=== PATIENT | male | born 1980 | race Caucasian/White ===

== ENCOUNTER 2018-11-06 04:51 | Inpatient (IN) ==
--- NOTE | 2018-11-06 06:36 | Emergency Department Note ---
Disposition Clinical Impression: Manic behavior Schizophrenia Qualifiers: Schizophrenia type: unspecified Qualified Code(s): F20.9 - Schizophrenia, unspecified Bipolar disorder Qualifiers: Active/Remission status: remission status unspecified Qualified Code(s): F31.9 - Bipolar disorder, unspecified Disposition: Admitted As Inpatient Condition: Good General Adult HPI - General Stated complaint: foot pain Time Seen by Provider: 11/06/18 06:18 Source: patient Limitations: no limitations Nursing Notes Reviewed: Yes Vital Signs Reviewed: Yes - History of Present Illness HPI Narrative: 37-year-old male presents with inappropriate behavior. Patient was sent by ambulance from [facility]. Patient took off all his clothes in bathroom. Patient stated yesterday he does not leave hospital, all this will be exposed to TV. Patient's verbal and behavior became aggressive. Patient admitted he has a history of schizophrenia. Not on any medications. Patient stated he has voice hallucinations sometimes. Denied hallucination at this time. Denied suicidal or homicidal at this time. - Related Data Home Medications Medication Instructions Recorded Confirmed No Known Home Drugs 06/09/18 11/06/18 Allergies Allergy/AdvReac Type Severity Reaction Status Date / Time codeine Allergy Hives Verified 11/06/18 07:37 Penicillins Allergy Swelling Verified 11/06/18 07:37 of Lip/Tongue/Throat Constitutional: Denies: fever, chills Eyes: Denies: eye pain ENT ED: Denies: ear pain Cardiovascular: Denies: chest pain Respiratory: Denies: cough Gastrointestinal: Denies: abdominal pain Genitourinary: Denies: urgency Musculoskeletal: Denies: back pain Integumentary: Denies: rash Neurological: Denies: headache Psychiatric: Reports: auditory hallucinations. Denies: anxiety, suicidal thoughts Endocrine: Denies: fatigue Hematological/Lymphatic: Denies: easy bleeding Allergic/Immunologic: Denies: facial swelling Past Medical History - Past Medical History Medical history: Reports: no medical history Psychiatric history: Reports: no psych history - Social History Smoking Status: Current every day smoker Smokeless Tobacco Status: No Alcohol use: Reports: none Drug use: Reports: marijuana Physical Exam - General Limitations: no limitations General appearance: alert - Head Head exam: atraumatic - Eye Eye exam: Present: normal appearance - ENT ENT exam: normal exam - Neck Neck exam: Present: normal inspection - Chest Chest inspection: Present: normal inspection - Respiratory Respiratory exam: Present: normal lung sounds bilaterally - Cardiovascular Cardiovascular exam: Present: regular rate - Abdominal Exam Abdominal exam: Present: soft, Non-Tender - Extremities Exam Extremities exam: Present: normal inspection, full ROM. Absent: tenderness - Back Exam Back exam: Present: normal inspection - Neurological Exam Neurological exam: Present: alert, oriented X3, normal gait - Psychiatric Psychiatric exam: Present: normal affect, agitated, other (Pt is half naked in room with towel covered waist down, pt denied hallucination on this time, no suicidal or homicidal thought, denied foot pain) - Skin Skin exam: Present: warm, intact Course Vital Signs Temperature 98.1 F 11/06/18 07:41 Pulse Rate 72 11/06/18 07:41 Respiratory Rate 18 11/06/18 07:41 Blood Pressure 128/84 11/06/18 07:41 O2 Sat by Pulse Oximetry 98 11/06/18 07:41 Temperature 98.1 F 11/06/18 07:41 Pulse Rate 72 11/06/18 07:41 Respiratory Rate 18 11/06/18 07:41 Blood Pressure 128/84 11/06/18 07:41 O2 Sat by Pulse Oximetry 98 11/06/18 07:41 Oxygen Delivery Oxygen Delivery Room Air Medical Decision Making - MDM Narrative Medical decision making narrative: 37-year-old male with history of schizophrenia and bipolar presents with in appropriate behavior. Pt was sent to ER by ambulance for foot pain. But pt took off his cloth in bathroom. Pt walked around in waiting room naked. Pt became aggressive when safeguard talked to him. Pt admitted auditory hallucination sometimes. Denied hallucination or suicidal thought at this time. Labs are unremarkable, negative drug screen. 1A evaluated, and considered pt doesn't meet the criteria of admission. Patient is suggested to have a head CT. Patient refused it. Patient is referred to mental health clinic. Patient will be discharged home. 10:30 am. Pt started having aggressive language and behavior during discharging. Pt stated he felt something is wrong here. Pt refused to leave with wet cloth and without sitting on wheelchair. Pt yelled in hallway madly. Concerning of homicidal behavior at this time. . Will call 1A again. 11:30 am 1A evaluated, will admit patient to for observation. Dr. Fierro has seen the patient and agrees the above plan. - Lab Data Lab results reviewed: Yes I reviewed the patient's lab results. Result diagrams: 11/06/18 06:45 11/06/18 06:45 Lab Results 11/06/18 11/06/18 11/06/18 Range/Units 06:45 06:45 07:02 WBC 10.2 (4.3-11.1) K/mcL RBC 4.97 (4.19-5.50) M/mcL Hgb 15.1 (12.9-16.9) g/dL Hct 45.5 (37.5-50.1) % MCV 91.5 (83.0-100.0) fL MCH 30.4 (28.0-33.3) pg MCHC 33.2 (31.6-35.5) g/dL RDW 13.9 (11.5-14.5) % Plt Count 245 (140-400) K/mcL MPV 9.3 L (9.4-12.4) fL Immature Gran % 0.5 (0-4) % Seg Neutrophils % 74.1 % Lymphocytes % 14.9 % Monocytes % 8.6 % Eosinophils % 1.5 % Basophils % 0.4 % Neutrophils # 7.5 (1.6-8.9) K/mcL Lymphocytes # 1.5 (0.6-4.6) K/mcL Monocytes # 0.9 (0.0-1.3) K/mcL Eosinophils # 0.2 (0.0-0.6) K/mcL Basophils # 0.0 (0.0-0.2) K/mcL Sodium 135 L (136-145) mEq/L Potassium 4.1 (3.5-5.1) mEq/L Chloride 103 (98-107) mEq/L Carbon Dioxide 23 (23-29) mEq/L BUN 10 (6-20) mg/dL Creatinine 0.60 L (0.70-1.30) mg/dL Est GFR ( Amer) > 60 (> 60) Est GFR (Non-Af Amer) > 60 (> 60) BUN/Creatinine Ratio 17 (6-26) Glucose 113 H (70-105) mg/dL Calculated Osmolality 280 (280-300) Calcium 9.2 (8.6-10.3) mg/dL Total Bilirubin 1.1 H (0.3-1.0) mg/dL Direct Bilirubin 0.1 (0.0-0.2) mg/dL Indirect Bilirubin 1.0 (0.0-1.2) mg/dL AST 18 (13-39) Units/L ALT 17 (7-52) Units/L Alkaline Phosphatase 90 (34-104) Units/L Serum Total Protein 6.9 (6.4-8.9) g/dL Albumin 4.2 (3.5-5.7) g/dL Globulin 2.7 (2.4-3.5) g/dL Albumin/Globulin Ratio 1.6 (1.1-2.2) Urine Color Yellow (Yellow) Urine Clarity Clear (Clear) Urine pH 5.5 (5.0-8.0) pH Units Ur Specific [place] 1.020 (1.010-1.025) Urine Protein Negative (Neg-Trace) mg/dL Urine Glucose (UA) Normal (Normal) mg/dL Urine Ketones Negative (Negative) mg/dL Urine Blood Negative (Negative) Urine Nitrite Negative (Negative) Urine Bilirubin Negative (Negative) Urine Urobilinogen Normal (Normal) mg/dL Ur Leukocyte Esterase Negative (Negative) Salicylates < 2.5 L (15.0-30.0) mg/dL Urine Opiates Screen (Tgpiyi=476) ng/mL Acetaminophen < 10 L (10-20) mcg/mL Ur Barbiturates Screen (Hezhof=110) ng/mL Ur Phencyclidine Scrn (Cutoff=25) ng/mL Ur Amphetamines Screen (Cktcdy=6600) ng/mL U Benzodiazepines Scrn (Qgtrmb=402) ng/mL Urine Cocaine Screen (Cutoff= 300) ng/mL U Marijuana (THC) Screen (Cutoff = 50) ng/mL Ur Drug Screen Interp Ethyl Alcohol < 10 (Less than 10) mg/dL 11/06/18 Range/Units 07:02 WBC (4.3-11.1) K/mcL RBC (4.19-5.50) M/mcL Hgb (12.9-16.9) g/dL Hct (37.5-50.1) % MCV (83.0-100.0) fL MCH (28.0-33.3) pg MCHC (31.6-35.5) g/dL RDW (11.5-14.5) % Plt Count (140-400) K/mcL MPV (9.4-12.4) fL Immature Gran % (0-4) % Seg Neutrophils % % Lymphocytes % % Monocytes % % Eosinophils % % Basophils % % Neutrophils # (1.6-8.9) K/mcL Lymphocytes # (0.6-4.6) K/mcL Monocytes # (0.0-1.3) K/mcL Eosinophils # (0.0-0.6) K/mcL Basophils # (0.0-0.2) K/mcL Sodium (136-145) mEq/L Potassium (3.5-5.1) mEq/L Chloride (98-107) mEq/L Carbon Dioxide (23-29) mEq/L BUN (6-20) mg/dL Creatinine (0.70-1.30) mg/dL Est GFR ( Amer) (> 60) Est GFR (Non-Af Amer) (> 60) BUN/Creatinine Ratio (6-26) Glucose (70-105) mg/dL Calculated Osmolality (280-300) Calcium (8.6-10.3) mg/dL Total Bilirubin (0.3-1.0) mg/dL Direct Bilirubin (0.0-0.2) mg/dL Indirect Bilirubin (0.0-1.2) mg/dL AST (13-39) Units/L ALT (7-52) Units/L Alkaline Phosphatase (34-104) Units/L Serum Total Protein (6.4-8.9) g/dL Albumin (3.5-5.7) g/dL Globulin (2.4-3.5) g/dL Albumin/Globulin Ratio (1.1-2.2) Urine Color (Yellow) Urine Clarity (Clear) Urine pH (5.0-8.0) pH Units Ur Specific [place] (1.010-1.025) Urine Protein (Neg-Trace) mg/dL Urine Glucose (UA) (Normal) mg/dL Urine Ketones (Negative) mg/dL Urine Blood (Negative) Urine Nitrite (Negative) Urine Bilirubin (Negative) Urine Urobilinogen (Normal) mg/dL Ur Leukocyte Esterase (Negative) Salicylates (15.0-30.0) mg/dL Urine Opiates Screen Negative (Stsoza=631) ng/mL Acetaminophen (10-20) mcg/mL Ur Barbiturates Screen Negative (Njjqzg=104) ng/mL Ur Phencyclidine Scrn Negative (Cutoff=25) ng/mL Ur Amphetamines Screen Negative (Dtaeqa=0229) ng/mL U Benzodiazepines Scrn Negative (Xojtoe=435) ng/mL Urine Cocaine Screen Negative (Cutoff= 300) ng/mL U Marijuana (THC) Screen Negative (Cutoff = 50) ng/mL Ur Drug Screen Interp See Below Ethyl Alcohol (Less than 10) mg/dL Attestation Statement - Attestation Attestation: I, Ryan Mims DO have provided [id number] time during the care of this patient. Detailed review the presentation, symptoms, medical history were discussed and reviewed with the advanced practice provider Rudi Meneses PA-C/[employer]. Medical intervention labs and imaging studies were reviewed in detail. See full documentation of physical exam and course of care in the advanced practice provider's note. I agree with the determined course of care, medical intervention and disposition put forth by the advanced practice provider. See below documentation for changes or alterations in documentation. Ysabel Spencer M.D. also had [id number] time with this patient. Initial consultation by one a was at the patient was okay to go home. However prior to him leaving he threatened to jump in front of a car. He got hostile and somewhat disgruntled with the staff. I we had one a reevaluate him and they agreed to accept him to the psychiatric banks. Hemodynamically he remained stable and medically cleared for admission.
--- NOTE | 2018-11-06 06:39 | Emergency Department Note ---
Disposition Clinical Impression: Manic behavior Disposition: Still a Patient Condition: Fair Referrals: NONE,PCP [Primary Care Provider] - Time of Disposition: 06:39 General Adult HPI - General Stated complaint: foot pain Time Seen by Provider: 11/06/18 06:18 - Related Data Home Medications Medication Instructions Recorded Confirmed No Known Home Drugs 06/09/18 06/09/18 Allergies Allergy/AdvReac Type Severity Reaction Status Date / Time codeine Allergy Hives Verified 07/21/18 19:12 Past Medical History - Past Medical History Medical history: Reports: no medical history Psychiatric history: Reports: no psych history - Social History Smoking Status: Current every day smoker Smokeless Tobacco Status: No Alcohol use: Reports: none Drug use: Reports: marijuana Attestation Statement - Attestation Attestation: I, Ryan Mims DO have provided [id number] time during the care of this patient. Detailed review the presentation, symptoms, medical history were discussed and reviewed with the advanced practice provider Rudi Meneses PA-C/[employer]. Medical intervention labs and imaging studies were reviewed in detail. See full documentation of physical exam and course of care in the advanced practice provider's note. I agree with the determined course of care, medical intervention and disposition put forth by the advanced practice provider. See below documentation for changes or alterations in documentation. 37-year-old male presents emergency room with foot pain. Patient was waiting in the triage area for evaluation when he decided to remove all his clothing and try to walk outside. He is actively in a manic episode. The emergency room. Patient denies any fevers or chills. No nausea vomiting or diarrhea. Denies any chest pain or shortness of breath. Denies any falls trauma or injury. He has not been taking all of his medications at this time. Patient is describing people actively trying to come after him and clearly manic and delusional presen tation at this point. Medical clearance will be established. Patient does not require any chemical or physical restraint at this time. He is conversational and easily distractible. Headhave an abrasion above the right anterior aspect of the orbit from when the officers try to bring her back and in the hospital while he was naked. Heart is regular lungs are clear. Neurologic evaluation is benign. Patient is otherwise stable. Screening evaluation will be established and psychiatric treatment course will be completed. Patient be signed out to the daytime physician Dr. Spencer. They will complete the evaluation and treatment. Patient had a pink slip signed and medical management will be established.
[2018-11-06 07:01] LABS: Basophils % 0.4 %; Eosinophils # 0.2 K/mcL (0.0-0.6); Eosinophils % 1.5 %; Hematocrit 45.5 % (37.5-50.1); Hemoglobin 15.1 g/dL (12.9-16.9); Immature Granulocytes % 0.5 % (0-4); Lymphocytes # 1.5 K/mcL (0.6-4.6); Lymphocytes % 14.9 %; Mean Corpuscular HGB Conc 33.2 g/dL (31.6-35.5); Mean Corpuscular Hemoglobin 30.4 pg (28.0-33.3); Mean Corpuscular Volume 91.5 fL (83.0-100.0); Mean Platelet Volume 9.3 fL (9.4-12.4); Monocytes # 0.9 K/mcL (0.0-1.3); Monocytes % 8.6 %; Neutrophils # 7.5 K/mcL (1.6-8.9); Platelet Count 245 K/mcL (140-400); Red Blood Count 4.97 M/mcL (4.19-5.50); Red Cell Distribution Width 13.9 % (11.5-14.5); Segmented Neutrophils % 74.1 %
[2018-11-06 07:15] LABS: Amphetamine Screen,Urine Negative ng/mL (Cutoff=1000); Barbiturate Screen,Urine Negative ng/mL (Cutoff=200)
[2018-11-06 07:16] LABS: Benzodiazepines Screen,Urine Negative ng/mL (Cutoff=300); Cannabinoid Screen,Urine Negative ng/mL (Cutoff = 50); Cocaine Screen,Urine Negative ng/mL (Cutoff= 300); Opiate Screen,Urine Negative ng/mL (Cutoff=300); Phencyclidine Screen,Urine Negative ng/mL (Cutoff=25)
[2018-11-06 07:20] LABS: Bilirubin,Urine Negative (Negative); Blood,Urine Negative (Negative); Clarity,Urine Clear (Clear); Color,Urine Yellow (Yellow); Glucose,Urine (UA) Normal (Normal); Ketones,Urine Negative (Negative); Leukocyte Esterase,Urine Negative (Negative); Nitrite,Urine Negative (Negative); PH,Urine 5.5 pH Units (5.0-8.0); Protein,Urine Negative (Neg-Trace); Urobilinogen,Urine Normal (Normal)
[2018-11-06 07:21] LABS: Acetaminophen < 10 mcg/mL (10-20); Alanine Aminotransferase 17 Units/L (7-52); Albumin 4.2 g/dL (3.5-5.7); Albumin/Globulin Ratio 1.6 (1.1-2.2); Alkaline Phosphatase 90 Units/L (34-104); Aspartate Amino Transferase 18 Units/L (13-39); BUN/Creatinine Ratio 17 (6-26); Bilirubin,Direct 0.1 mg/dL (0.0-0.2); Bilirubin,Total 1.1 mg/dL (0.3-1.0); Blood Urea Nitrogen 10 mg/dL (6-20); Calcium 9.2 mg/dL (8.6-10.3); Carbon Dioxide 23 mEq/L (23-29); Chloride 103 mEq/L (98-107); Ethanol < 10 mg/dL (Less than 10); Globulin 2.7 g/dL (2.4-3.5); Glucose 113 mg/dL (70-105); Osmolality,Calculated 280 (280-300); Potassium 4.1 mEq/L (3.5-5.1); Salicylate < 2.5 mg/dL (15.0-30.0); Sodium 135 mEq/L (136-145); Total Protein 6.9 g/dL (6.4-8.9); eGFR For Non-African Americans > 60 (> 60)
[2018-11-06] MEDS ORDERED: traZODone 50 MG TABLET PO PRN (11:44)
[2018-11-06] MEDS ORDERED: MOM Conc 10 ML UD.LIQ PO PRN (11:44)
[2018-11-06] MEDS ORDERED: *HR* LORazepam 2 MG/ML VIAL IM PRN (11:44)
[2018-11-06] MEDS ORDERED: Mag Hydrox/Al Hydrox/Simeth 30 ML UDC PO PRN (11:44)
[2018-11-06] MEDS ORDERED: Ibuprofen 400 MG TABLET PO PRN (11:44)
[2018-11-06] MEDS ORDERED: hydrOXYzine pamoate 25 MG CAPSULE PO PRN (11:44)
[2018-11-06] MEDS ORDERED: Haloperidol Lactate 5 MG/ML VIAL IM PRN (11:44)
[2018-11-06] MEDS ORDERED: *HR* LORazepam 1 MG TABLET PO PRN (11:44)
--- NOTE | 2018-11-07 16:58 | Psychiatry History & Physical ---
Date of Encounter: 11/07/18 Time of Encounter: 16:48 History of Present Illness Patient Stated Chief Complaint: suicidal ideation Medicare Admission Attestation: For traditional Medicare patients the provided hospital inpatient services are reasonable and necessary and in the case of services not specified as inpatient-only under 42 CFR 419.22 (n), that they are appropriately provided as inpatient services in accordance 42 CFR 412.3. For Critical Access Hospital the patient may reasonably be expected to be discharged or transferred to a hospital within 96 hours after admission to the Critical Access Hospital. Admitted From: Home Plans for Post Hospital Care: Transfer Other History of Present Illness: Mr. Sarabia is a 37 year old male who presented to the ER secondary to foot pain. According to ER records client took off all of his clothes while waiting to be seen and attempted to walk outside naked. He was redirected back to his room and was then assessed by mental health and admitted to . On eval today client reports he was admitted secondary to "depression." Denies active SI but states he has been suicidal in the past. Denies past attempts or hospitalizations. However, records indicate he has presented to the ER multiple times for depression. It does not appear as if his past ER visits for depression have resulted in any admissions. He has been referred for outpatient follow-up but client denies any linkage or recent treatment. Denies past diagnoses or med trials. Claims he has been homeless for a couple of years. Also reports he has been abusing methamphetamines although his tox screen was negative. Amphetamine abuse could explain his bizarre behaviors in the ER. He may also have genuine psychosis although it is difficult to assess at this time as client has mostly been sleeping since arriving on the unit and he was minimally engaged with the assessment today. Client reports he does not see doctors but he is unaware of having any physical health problems. Admitting labwork unremarkable. He denies knowing about mental illness in his family. Willing to start an antidepressant. May need an antipsychotic as well. Will need a housing referral. Will likely ask [facility] to come and assess him. Past Med Surg Social Fam HX - Past Medical History Medical history: other - Past Psychiatric History Psychiatric history: Reports: depression Family psychiatric history: Unknown Family History of Suicide: Unknown - Past Surgical History Surgical History: no surgical history - Social History Smoking Status: Current every day smoker Smokeless Tobacco Status: No Alcohol use: none Drug use: marijuana, methamphetamine - Family History Mother Name: Unknown Living Status: Age at : 65 Hx Family Cardiac Disorders: No Hx Family Respiratory Disorders: No Hx Family Cancer: No Hx Family GI Disorders: No Hx Family Genitourinary Disorders: No Hx Family Endocrine Disorder: No Hx Family Musculoskeletal Disorders: No Hx Family Neuromuscular Disorders: No Hx Family Neurologic Disorders: No Hx Family HEENT Disorders: No Hx Family Autoimmune Disorders: No Hx Family Reproductive Disorders: No Hx Family Psychosocial Disorders: No Hx Family Medical Disorders: No Medications & Allergies No Known Home Drugs 06/09/18 [History] Allergy/AdvReac Type Severity Reaction Status Date / Time codeine Allergy Hives Verified 11/07/18 08:28 Penicillins Allergy Swelling Verified 11/07/18 08:28 of Lip/Tongue/Throat Review of Systems Constitutional: Denies: fever, chills, weakness, weight change Eyes: Denies: eye pain, vision change Ears, Nose, Throat: Denies: ear pain, throat pain, dental pain, hearing loss, congestion Cardiovascular: Denies: chest pain, palpitations, dyspnea on exertion Respiratory: Denies: cough, dyspnea, wheezes Gastrointestinal: Denies: abdominal pain, nausea, vomiting, diarrhea, constipation Genitourinary male: Denies: urgency, dysuria, frequency, genital lesions Musculoskeletal: Denies: joint swelling, joint pain Integumentary: Denies: rash, lesions, pruritus Neurological: Denies: headache, weakness, numbness, memory loss Endocrine: Denies: fatigue, heat or cold intolerance Hematologic/Lymphatic: Denies: easy bruising, lymphadenopathy Allergic/Immunologic: Denies: urticaria, itchy eyes Exam - HEENT Head exam IM: Present: atraumatic Eye exam IM: Present: conjunctival injection ENT exam IM: Present: normal exam - Neurological Neurological exam: Present: CN II-XII intact - Respiratory Respiratory exam IM: Present: CTAB - GI/Abdominal GI/Abdominal exam IM: Present: normal bowel sounds, soft. Absent: tenderness - Extremities Extremities exam IM: Present: full ROM - Skin Skin exam IM: Present: dry, warm - Constitutional Vitals: Temp Pulse Resp BP Pulse Ox 98.2 F 96 16 127/80 97 11/07/18 09:00 11/07/18 09:00 11/07/18 09:00 11/07/18 09:00 11/07/18 09:00 General appearance: thin - Musculoskeletal Gait: normal Station: relaxed Strength & Tone: normal for patient - Psychiatric Patient Orientation: Yes Person, Yes Time, Yes Place Level of alertness: Alert Behavior: calm, cooperative Psychomotor activity: Normal Eye Contact: Maintains Eye Contact Mood Description: Depressed Affect description: congruent with mood Speech Volume: Normal Speech pattern: normal rate, normal rhythm, normal tone, fluent, spontaneous Language & Vocabulary: consistent with education Thought Process: Linear Thought Content: No Suicidal ideation, No Homicidal ideation, No Overt delusions Perceptual Disturbances: No Auditory hallucinations, No Visual hallucinations Attention Span Ability: Capable of Focused Attention Memory Description: Immediate Intact, Recent Impaired, Remote Intact Patient Reliability: Questionable Historian Fund of knowledge: Yes abstraction ability, Yes average, Yes aware of current events Intelligence Estimate: Average Judgment: Fair Insight: Minimal Results - Labs Labs: Laboratory Last Values WBC 10.2 K/mcL (4.3-11.1) 11/06/18 06:45 RBC 4.97 M/mcL (4.19-5.50) 11/06/18 06:45 Hgb 15.1 g/dL (12.9-16.9) 11/06/18 06:45 Hct 45.5 % (37.5-50.1) 11/06/18 06:45 MCV 91.5 fL (83.0-100.0) 11/06/18 06:45 MCH 30.4 pg (28.0-33.3) 11/06/18 06:45 MCHC 33.2 g/dL (31.6-35.5) 11/06/18 06:45 RDW 13.9 % (11.5-14.5) 11/06/18 06:45 Plt Count 245 K/mcL (140-400) 11/06/18 06:45 MPV 9.3 fL (9.4-12.4) L 11/06/18 06:45 Immature Gran % 0.5 % (0-4) 11/06/18 06:45 Seg Neutrophils % 74.1 % 11/06/18 06:45 14.9 % 11/06/18 06:45 8.6 % 11/06/18 06:45 1.5 % 11/06/18 06:45 0.4 % 11/06/18 06:45 7.5 K/mcL (1.6-8.9) 11/06/18 06:45 1.5 K/mcL (0.6-4.6) 11/06/18 06:45 0.9 K/mcL (0.0-1.3) 11/06/18 06:45 0.2 K/mcL (0.0-0.6) 11/06/18 06:45 0.0 K/mcL (0.0-0.2) 11/06/18 06:45 Sodium 135 mEq/L (136-145) L 11/06/18 06:45 Potassium 4.1 mEq/L (3.5-5.1) 11/06/18 06:45 Chloride 103 mEq/L (98-107) 11/06/18 06:45 Carbon Dioxide 23 mEq/L (23-29) 11/06/18 06:45 BUN 10 mg/dL (6-20) 11/06/18 06:45 0.60 mg/dL (0.70-1.30) L 11/06/18 06:45 Est GFR ( Amer) > 60 (> 60) 11/06/18 06:45 Est GFR (Non-Af Amer) > 60 (> 60) 11/06/18 06:45 17 (6-26) 11/06/18 06:45 Glucose 113 mg/dL (70-105) H 11/06/18 06:45 280 (280-300) 11/06/18 06:45 Calcium 9.2 mg/dL (8.6-10.3) 11/06/18 06:45 1.1 mg/dL (0.3-1.0) H 11/06/18 06:45 0.1 mg/dL (0.0-0.2) 11/06/18 06:45 1.0 mg/dL (0.0-1.2) 11/06/18 06:45 AST 18 Units/L (13-39) 11/06/18 06:45 ALT 17 Units/L (7-52) 11/06/18 06:45 90 Units/L (34-104) 11/06/18 06:45 6.9 g/dL (6.4-8.9) 11/06/18 06:45 4.2 g/dL (3.5-5.7) 11/06/18 06:45 2.7 g/dL (2.4-3.5) 11/06/18 06:45 1.6 (1.1-2.2) 11/06/18 06:45 Yellow (Yellow) 11/06/18 07:02 Clear (Clear) 11/06/18 07:02 5.5 pH Units (5.0-8.0) 11/06/18 07:02 Ur Specific [place] 1.020 (1.010-1.025) 11/06/18 07:02 Negative mg/dL (Neg-Trace) 11/06/18 07:02 Normal mg/dL (Normal) 11/06/18 07:02 Negative mg/dL (Negative) 11/06/18 07:02 Negative (Negative) 11/06/18 07:02 Negative (Negative) 11/06/18 07:02 Negative (Negative) 11/06/18 07:02 Normal mg/dL (Normal) 11/06/18 07:02 Ur Leukocyte Esterase Negative (Negative) 11/06/18 07:02 Salicylates < 2.5 mg/dL (15.0-30.0) L 11/06/18 06:45 Negative ng/mL (Zbxoit=906) 11/06/18 07:02 Acetaminophen < 10 mcg/mL (10-20) L 11/06/18 06:45 Ur Barbiturates Screen Negative ng/mL (Glpovw=186) 11/06/18 07:02 Ur Phencyclidine Scrn Negative ng/mL (Cutoff=25) 11/06/18 07:02 Ur Amphetamines Screen Negative ng/mL (Xdfvuy=7539) 11/06/18 07:02 U Benzodiazepines Scrn Negative ng/mL (Kwfnbd=575) 11/06/18 07:02 Negative ng/mL (Cutoff= 300) 11/06/18 07:02 U Marijuana (THC) Screen Negative ng/mL (Cutoff = 50) 11/06/18 07:02 Ur Drug Screen Interp See Below 11/06/18 07:02 Ethyl Alcohol < 10 mg/dL (Less than 10) 11/06/18 06:45 Assessment and Plan (1) Substance-induced psychotic disorder Current visit: Yes Status: Acute Plan: Admit inpatient for safety and stabilization, Close observation, Suicide Precautions per unit protocol, Encourage participation in unit milieu, Group Therapy, Monitor sleep, Monitor appetite Risks, benefits, side effects, alternatives discussed w/pt: Yes Patient agreeable to treatment: Yes Plans for Post Hospital Care: Transfer Other Estimated Length of Stay (Days): 4 (2) Major depression Current visit: Yes Status: Acute Plan: Admit inpatient for safety and stabilization, Close observation, Suicide Precautions per unit protocol, Encourage participation in unit milieu, Group Therapy, Monitor sleep, Monitor appetite Risks, benefits, side effects, alternatives discussed w/pt: Yes Patient agreeable to treatment: Yes Plans for Post Hospital Care: Transfer Other Estimated Length of Stay (Days): 4 Qualifiers: Major depression recurrence: recurrent Active/Remission status: currently active Major depression episode severity: moderate Qualified Code(s): F33.1 - Major depressive disorder, recurrent, moderate
--- NOTE | 2018-11-08 13:37 | Psychiatry Progress Note ---
Date of Encounter: 11/08/18 Time of Encounter: 13:33 Subjective Interval history: Client reports he does not notice any real change in his mood. Denies SI, intent, or plan. Denies side effects to Zoloft so will increase dose for tomorrow. No evidence of psychosis today. Client states he has not taken meth in a month and tox screen was negative. Unclear why he disrobed in the ER. However, he appears to be thinking clearly at this time. Client reports he is ready to leave. Has mostly been in his room sleeping since he got here. No real reason to keep him inpatient beyond tonight since he is not engaging in groups/treatment and he is denying SI/HI/AH/VH. Working on housing but client states he will go to a custodial if needed. If tolerates increase in Zoloft will plan on discharge tomorrow morning. Review of Systems Constitutional: Denies: fever, chills, weakness, weight change Eyes: Denies: eye pain, vision change Ears, Nose, Throat: Denies: ear pain, throat pain, dental pain, hearing loss, congestion Cardiovascular: Denies: chest pain, palpitations, dyspnea on exertion Respiratory: Denies: cough, dyspnea, wheezes Gastrointestinal: Denies: abdominal pain, nausea, vomiting, diarrhea, constipation Musculoskeletal: Denies: joint swelling, joint pain Neurological: Denies: headache, weakness, numbness, memory loss Results - Vital Signs Vital Signs: Temp Pulse Resp BP Pulse Ox 98 F 96 16 118/86 98 11/08/18 08:59 11/08/18 08:59 11/08/18 08:59 11/08/18 08:59 11/08/18 08:59 Assessment and Plan (1) Substance-induced psychotic disorder Current visit: Yes Status: Acute Plan: Continue hospitalization, Close observation, Suicide Precautions per unit protocol, Encourage participation in unit milieu, Group Therapy, Monitor sleep, Monitor appetite Risks, benefits, side effects, alternatives discussed w/pt: Yes Patient agreeable to treatment: Yes (2) Major depression Current visit: Yes Status: Acute Plan: Continue hospitalization, Close observation, Suicide Precautions per unit protocol, Encourage participation in unit milieu, Group Therapy, Monitor sleep, Monitor appetite Risks, benefits, side effects, alternatives discussed w/pt: Yes Patient agreeable to treatment: Yes Qualifiers: Major depression recurrence: recurrent Active/Remission status: currently active Major depression episode severity: moderate Qualified Code(s): F33.1 - Major depressive disorder, recurrent, moderate Consult Discharge Plan - Plan Referrals: NONE,PCP [Primary Care Provider] - Psychiatry Exam - Constitutional Vitals: Temp Pulse Resp BP Pulse Ox 98 F 96 16 118/86 98 11/08/18 08:59 11/08/18 08:59 11/08/18 08:59 11/08/18 08:59 11/08/18 08:59 General appearance: age & developmentally appropriate, well-groomed, well- nourished - Musculoskeletal Gait: normal Station: relaxed Strength & Tone: normal for patient - Psychiatric Patient Orientation: Yes Person, Yes Time, Yes Place Level of alertness: Alert Behavior: calm, cooperative Psychomotor activity: Normal Eye Contact: Maintains Eye Contact Mood Description: Depressed Affect description: congruent with mood Speech Volume: Normal Speech pattern: normal rate, normal rhythm, normal tone, fluent, spontaneous Language & Vocabulary: consistent with education Thought Process: Linear, Goal Oriented Thought Content: No Suicidal ideation, No Homicidal ideation, No Overt delusions Perceptual Disturbances: No Auditory hallucinations, No Visual hallucinations Attention Span Ability: Capable of Focused Attention Memory Description: Grossly Intact Patient Reliability: Reliable Historian Fund of knowledge: Yes abstraction ability, Yes aware of current events Intelligence Estimate: Average Judgment: Fair Insight: Partial
[2018-11-09 09:28] VITALS: BP 122/84
--- NOTE | 2018-11-09 10:05 | Discharge Summary ---
Date of Encounter: 11/09/18 Time of Encounter: 09:58 Diagnosis - Discharge Diagnosis (1) Substance-induced psychotic disorder Status: Acute (2) Major depression Status: Acute Qualifiers: Major depression recurrence: recurrent Active/Remission status: currently active Major depression episode severity: moderate Qualified Code(s): F33.1 - Major depressive disorder, recurrent, moderate Medications - Discharge Medications Prescriptions: Sertraline [Zoloft] 100 mg PO DAILY #30 tablet Sertraline [Zoloft] 100 mg PO DAILY #30 tablet 11/09/18 [Rx] Allergy/AdvReac Type Severity Reaction Status Date / Time codeine Allergy Hives Verified 11/07/18 08:28 Penicillins Allergy Swelling Verified 11/07/18 08:28 of Lip/Tongue/Throat Results Procedures and tests throughout hospitalization: Completed Lab Orders Category Date Time Status Acetaminophen Stat Lab 11/06/18 06:45 Completed Basic Metabolic Panel Stat Lab 11/06/18 06:45 Completed Complete Blood Count [HEME] Stat Lab 11/06/18 06:45 Completed Ethanol Stat Lab 11/06/18 06:45 Completed Hepatic Panel Stat Lab 11/06/18 06:45 Completed Salicylate Stat Lab 11/06/18 06:45 Completed Urinalysis reflex Microscopic [URIN] Stat Lab 11/06/18 07:02 Completed Provider Date of admission: 11/07/18 07:41 Primary care physician: PCP NONE Discharging clinician: Brandie Martinez Psychiatry Exam - Constitutional Vitals: Temp Pulse Resp BP Pulse Ox 97.1 F L 104 18 122/84 95 11/09/18 09:00 11/09/18 09:00 11/09/18 09:00 11/09/18 09:00 11/09/18 09:00 General appearance: age & developmentally appropriate, well-groomed, well- nourished - Musculoskeletal Gait: normal Station: relaxed Strength & Tone: normal for patient - Psychiatric Patient Orientation: Yes Person, Yes Time, Yes Place Level of alertness: Alert Behavior: calm, cooperative Psychomotor activity: Normal Eye Contact: Maintains Eye Contact Mood Description: Euthymic/stable Affect description: congruent with mood Speech Volume: Normal Speech pattern: normal rate, normal rhythm, normal tone, fluent, spontaneous Language & Vocabulary: consistent with education Thought Process: Linear, Goal Oriented Thought Content: No Suicidal ideation, No Homicidal ideation, No Overt delusions Perceptual Disturbances: No Auditory hallucinations, No Visual hallucinations Attention Span Ability: Capable of Focused Attention Memory Description: Grossly Intact Patient Reliability: Reliable Historian Fund of knowledge: Yes abstraction ability, Yes aware of current events Intelligence Estimate: Average Judgment: Fair Insight: Partial Hospital Course Hospital course: Mr. Sarabia is a 37 year old male who was admitted with vague SI and bizarre behavior in the ER. From the time of his arrival on [facility] he has consistently denied SI, intent, or plan. He has not been psychotic nor demonstrated any behavior problems on the unit. Client admitted to methamphetamine abuse which staff thought was the initial source of his bizarre presentation in the ER. However, client told [facility] staff he has not used in a month and his tox screen was negative. Initially he just slept on the unit. However, yesterday he was out of his room more and even attended a group. Today he is alert and his affect is bright and reactive. He reports feeling ready for discharge. He was started on Zoloft and he reports having a stable mood today. Has been homeless for an extended period of time. Staff are looking into getting him into [facility] and client is agreeable to this placement if it works out for this afternoon. No evidence of a thought disorder or major mood disturbance today. He is pleasant and future oriented. He is eating and sleeping well. Denies SI/HI/AH/VH. Looks stable for discharge. Total time spent with client greater than 30 minutes. Patient was educated of his diagnosis and the risks, benefits, and side effects of this treatment and alternative treatment options and was monitored for responsiveness and side effects. Mood, anxiety, sleep, appetite, and interest improved, as did future orientation. Self-harm thoughts subsided, thinking cleared, psychosis resolved, and mood stabilized. Patient was able to attend both individual and group therapy sessions as well as meeting with the psychiatrist daily and urged to discuss any medication or treatment issues or other concerns. The patient was educated primarily by verbal means about their diagnosis and manifestations in their life. The option for treatment including group and individual therapy programming was offered to the patient in the use of medications with all their potential risks, benefits, and side effects were discussed with the patient at length. The patient was given the opportunity to ask questions and was noted to participate in the treatment in the planning process. The patient felt ready and eager to be discharged from the inpatient psychiatric unit to continue on with treatment as an outpatient. The patient agreed that he is safe for this disposition. The patient was considered to be able to participate in informed consent and decision making with respect to medical, legal, and financial issues of the time of discharge. At the time of discharge the patient adamantly denied any concerns for lethality including suicidal or homicidal thoughts ideations or plans and was future oriented toward ongoing mental health care, medical follow-up and sobriety. - Time Spent with Patient Total time spent providing and/or coordinating discharge services: Assessment and Plan - Patient/Caregiver Discharge Instructions Activity: resume usual activities as tolerated Diet: regular diet - Follow up Plan Follow up with: NONE,PCP [Primary Care Provider] - Functional capacity at discharge: independent ambulation Overall status at discharge: Stable Disposition: Transfer Other Quality - Multiple Antipsychotics Patient discharged on 2 or more antipsychotic medications: No Procedures - Procedures Procedures: Medication Management, Crisis Stabilization, Supportive Therapy, Group Therapy
== END 2018-11-09 11:00 | disposition home or self-care (01) | DRG 751 ==
LOC: 1ANU 04:51 → EMEROOARM 04:51 → 1ANU 12:11
PROVIDERS: ADMIT Psychiatry & Neurology Psychiatry; ATTEND Psychiatry & Neurology Psychiatry